=== PATIENT | female | born 1960 | race Hispanic/Latino ===

== ENCOUNTER 2017-05-09 18:46 | Emergency (ER) | payer OTHER ==
[2017-05-09 19:27] VITALS: TEMP 98
[2017-05-09] MEDS ORDERED: SODIUM CHLORIDE 0.9% 1000ML 1,000 ML IVS ONE (19:52)
--- NOTE | 2017-05-09 19:58 | ED.PDOC ---
History of Present Illness - General Chief Complaint: Blood Pressure Problem Stated Complaint: elevated blood pressure Time Seen by Provider: 05/09/17 19:23 Source: patient, RN notes reviewed, Vital Signs reviewed Exam Limitations: no limitations - History of Present Illness Initial Comments: Patient comes in with c/o of elevated blood pressure and dehydration. Reports her blood pressure has just been off for the past few days. This morning it was 190/90. She took her PRN Clonidine 3X today and it was still elevated. Also reports that her knees and lower legs have been feeling weak. She has issues with low potassium. Timing/Duration: intermittent - over past 4 days Severity: moderate - BP is usually 130/70's Improving Factors: nothing Worsening Factors: nothing Associated Symptoms: weakness Allergies/Adverse Reactions: Allergies NO KNOWN ALLERGY Allergy (Verified 05/20/15 22:13) Home Medications: Ambulatory Orders Paroxetine HCl [Paxil] 10 mg PO DAILY #10 tab 05/21/15 Review of Systems - Review of Systems Constitutional: States: no symptoms reported EENTM: States: other - dry mouth Respiratory: States: no symptoms reported. Denies: short of breath Cardiology: States: see HPI - elevated BP. Denies: chest pain, palpitations Gastrointestinal/Abdominal: States: no symptoms reported Musculoskeletal: States: no symptoms reported Skin: States: no symptoms reported Neurological: States: anxiety All other Systems: No Change from Baseline Past Medical History (General) - Patient Medical History Hx Asthma: No Hx Hypertension: Yes Hx Diabetes: Yes Hx Gastroesophageal Reflux: Yes Surgical History: cholecystectomy - Vaccination History Hx Tetanus, Diphtheria Vaccination: Yes Hx Influenza Vaccination: No - Social History Hx Tobacco Use: No Hx Alcohol Use: No Hx Substance Use: No Hx Substance Use Treatment: No Hx Depression: Yes - Female History Patient : No Family Medical History - Family History Mother Family History: Unknown Living Status: Physical Exam - Physical Exam General Appearance: Alert, Comfortable, No apparent distress, Obese, Well Developed, Well Groomed, Well Nourished Ears, Nose, Throat: normal pharynx, other - Dry mucous membranes Neck: supple, normal inspection Respiratory: lungs clear, normal breath sounds, no respiratory distress, no accessory muscle use Cardiovascular/Chest: normal peripheral pulses, regular rate, rhythm, no edema, no gallop, no JVD, no murmur Peripheral Pulses: dorsalis pedis,right: 2+, dorsalis pedis,left: 2+ Gastrointestinal/Abdominal: normal bowel sounds, non tender, soft Extremity: normal range of motion, non-tender, normal inspection, no pedal edema Neurologic: alert, normal mood/affect, oriented x 3 Skin Exam: normal color, warm/dry Comments: Vital Signs 05/09/17 19:20 Temperature 98 F Pulse Rate [ 70 left] Respiratory 18 Rate Blood Pressure 162/75 [left] O2 Sat by Pulse 95 Oximetry Progress - Progress Progress: 05/09/17 21:33 Patient is feeling better after 1L of NS and BP is improved. Vital Signs - 24 hr 05/09/17 05/09/17 05/09/17 19:20 19:35 20:23 Temperature 98 F 98 F Pulse Rate [ 70 70 61 left] Respiratory 18 18 18 Rate Blood Pressure 162/75 157/79 135/66 [left] O2 Sat by Pulse 95 93 L Oximetry 05/09/17 21:04 Temperature Pulse Rate [ 57 L left] Respiratory 18 Rate Blood Pressure 159/71 [left] O2 Sat by Pulse 95 Oximetry - Results/Orders Results/Orders: Laboratory Tests 05/09/17 05/09/17 20:06 20:06 WBC 8.2 RBC 4.84 Hgb 13.5 Hct 38.8 MCV 80.1 L MCH 27.9 MCHC 34.8 RDW 13.6 Plt Count 275 MPV 8.6 Absolute Neuts (auto) 4.50 Absolute Lymphs (auto) 2.90 Absolute Monos (auto) 0.60 Absolute Eos (auto) 0.10 Absolute Basos (auto) 0.10 Neutrophils % 55.0 Lymphocytes % 35.1 Monocytes % 7.8 Eosinophils % 1.2 Basophils % 0.9 Sodium 133 L Potassium 3.6 Chloride 99 L Carbon Dioxide 28 Anion Gap 9.6 L BUN 18 Creatinine 0.47 L BUN/Creatinine Ratio 38.3 H Random Glucose 309 H Serum Osmolality 280.0 Calcium 9.1 Magnesium 1.6 L Total Bilirubin 0.5 AST 26 ALT 25 Alkaline Phosphatase 128 H Serum Total Protein 6.1 L Albumin 2.8 L Globulin 3.3 Albumin/Globulin Ratio 0.8 L Departure - Departure Clinical Impression: Dehydration, mild Hypertension Qualifiers: Hypertension type: essential hypertension Qualified Code(s): I10 - Essential ( primary) hypertension Time of Disposition: 21:35 Disposition: Discharge to Home or Self Care Condition: Good Departure Forms: ED Discharge - Pt. Copy, Patient Portal Self Enrollment Instructions: DI for High Blood Pressure Diet: resume usual diet, other - Increase water intake to at least 2L daily Activity: increase activity as tolerated Home Medications: Ambulatory Orders Paroxetine HCl [Paxil] 10 mg PO DAILY #10 tab 05/21/15
[2017-05-09 22:12] VITALS: BP 157/63; O2SAT 97
== END 2017-05-09 21:45 | disposition home or self-care (01) ==
LOC: ER 18:46
DX: I10 Essential (primary) hypertension (principal); E86.0 Dehydration; E11.9 Type 2 diabetes mellitus without complications; K21.9 Gastro-esophageal reflux disease without esophagitis; F32.9 Major depressive disorder, single episode, unspecified; Z79.899 Other long term (current) drug therapy
CPT/HCPCS: 36415; 80053; 83735; 85025; J7030